=== PATIENT | female | born 1950 | race Caucasian/White ===

== ENCOUNTER → 2017-11-21 16:07 | Outpatient (CLI) | payer BC, SELFPAY | PROVIDERS: Visit Provider Podiatrist | DX: M79.671 Pain in right foot (principal); M79.672 Pain in left foot ==

== ENCOUNTER → 2017-11-22 07:50 | Outpatient (CLI) | payer BC, SELFPAY ==
--- NOTE | 2017-11-22 10:23 | XR_ITS ---
XR foot wt bearing RT 3V HISTORY: Foot pain, plantar fasciitis ORDERING PHYSICIAN: Sabrina Liu DPM PATIENT AGE: 67 years COMPARISON: None FINDINGS: No fracture or dislocation. No lytic or blastic change. There is normal mineralization.. The joint spaces are well-preserved. No significant degenerative/arthritic changes. No erosive changes evident. No calcaneal spur evident. Normal alignment. IMPRESSION: Negative, no acute finding
--- NOTE | 2017-11-22 10:23 | XR_ITS ---
XR foot wt bearing LT 3V HISTORY: Foot pain, plantar fasciitis ORDERING PHYSICIAN: Sabrina Liu DPM PATIENT AGE: 67 years COMPARISON: None FINDINGS: No fracture or dislocation. No lytic or blastic change. There is normal mineralization.. The joint spaces are well-preserved. No significant degenerative/arthritic changes. No erosive changes evident. There is mild pes planus. There is a small calcaneal spur at 6 mm. Minimal hypertrophic changes are present at the dorsal aspect of the first metatarsal tarsal joint IMPRESSION: Pes planus with calcaneal spur. Mild hypertrophic changes first metatarsal tarsal joint
== END ==
PROVIDERS: Visit Provider Podiatrist
DX: M79.673 Pain in unspecified foot (principal); B35.1 Tinea unguium
CPT/HCPCS: 73630; 87102; 87206; 87220

== ENCOUNTER → 2018-02-27 16:17 | Outpatient (CLI) | payer BC, SELFPAY ==
[2018-02-27 17:12] LABS: Blood Urea Nitrogen 9 mg/dL (7-18); Creatinine,Serum 0.78 mg/dL (0.55-1.02); Estimated Glomerular Filt Rate 73 ml/min (>60); GFR (African American) 89 ML/MIN (>60)
== END ==
PROVIDERS: Visit Provider Family Medicine
DX: R10.84 Generalized abdominal pain (principal)
CPT/HCPCS: 36415; 82565; 84520

== ENCOUNTER → 2018-02-28 13:57 | Outpatient (CLI) | payer BC, SELFPAY ==
--- NOTE | 2018-02-28 14:12 | CT_ITS ---
CT abdomen pelvis wo/w con INDICATION: Mid abdominal pain ITS.REASON: ABDOMINAL PAIN ORDERING PHYSICIAN: Milagro Xavier MD PATIENT AGE: 67 years COMPARISON: No useful comparison. Ultrasound abdomen from December 2011 shows no splenic cyst or findings. TECHNIQUE: CT abdomen with and without contrast. (Header states CT abdomen and pelvis, but ONLY the CT abdomen was performed by the technologist) 75 cc Isovue-370 administered with postcontrast scanning performed at portal venous phase and then delayed images performed 5 minutes thereafter Sagittal and coronal reformatted images are reviewed as well. All CT scans at the facility use one or more dose reduction, viz: automated exposure control; ma/kV adjustment per patient size (including targeted exams where dose is matched to indication; i.e. head); or iterative reconstruction technique. FINDINGS: Spleen low-density lesion. 2.2 cm low-density round lesion at the anterior aspect of the spleen. This measures near fluid density precontrast and shows only little if any enhancement. . The margins are very slightly rough irregular and not smooth. Question very subtle scant enhancement along its slight irregular peripheral rim on the 5 minute delayed image of raise the possibility scant enhancing hemangioma although I believe this less likely.. . I would suggest ultrasound abdomen attention spleen further evaluate this area towards the superior spleen Most likely this reflects a benign entity such as a slight complex cyst, less likely small hemangioma with only scant peripheral enhancement enhancement.. Unlikely abscess without more pronounced inflammation and enhancement. Unlikely lymphoma, noting the fluid low-density precontrast 10-22 hu density measurements speak against lymphoma Liver.: Small 12 mm hepatic cyst identified along the posterior margin left lobe of liver.. Measuring 11 HU pre& postcontrast . Remainder the liver otherwise fairly unremarkable. Generous right lobe liver measuring 20 cm in length but overall normal liver volume. No biliary ductal dilatation. Normal portal vein. Gallbladder. No calcified stones. No inflammation or wall thickening. Pancreas. Unremarkable. Adrenals unremarkable. Kidneys. No urinary tract calculi nor obstruction. Normal enhancement. The ureters normal in course and caliber down to the pelvis. Scanning is performed just below the level of the umbilicus to the upper pelvis. The lung bases demonstrate mild atelectasis but no active disease 12 calcified: Millimeter partially calcified skin nodule medial left breast noted GI tract. A few diverticula at the descending colon but no diverticulitis. Portions Small bowel unremarkable. A small fat-containing umbilical hernia. Osseous unremarkable. The images do not include appendix prominent ask . IMPRESSION: 1. No acute findings. No findings to account for mid abdominal pain. (Only CT of abdomen images today down to the umbilicus. Pelvis not included.) 2. A 2.2 cm round low-density area Spleen. Probable cyst Suggest ultrasound abdomen with attention to the spleen- to further evaluate and confirm cyst 3. Small 12 mm cyst posterior left lobe of liver No urinary tract calculi nor obstruction.
== END ==
PROVIDERS: Family Provider Family Medicine; PCP Family Medicine; Visit Provider Family Medicine
DX: R10.84 Generalized abdominal pain (principal)
CPT/HCPCS: 74170; Q9967

== ENCOUNTER → 2019-01-02 10:44 | Outpatient (CLI) | payer BC, SELFPAY ==
--- NOTE | 2019-01-02 10:57 | CT_ITS ---
CT chest wo con HISTORY: Left anterior and lower chest pain, rib pain, painful inspiration, history of melanoma talar ITS.REASON: ABD PAIN,RIB PAIN ORDERING PHYSICIAN: Milagro Xavier MD PATIENT AGE: 68 years COMPARISON: None Technique: Axial images obtained. Sagittal, and coronal reformatted images are also generated and reviewed. All CT scans at the facility use one or more dose reduction, viz: automated exposure control, ma/kV adjustment per patient size (including targeted exams where dose is matched to indication, i.e. head), or iterative reconstruction technique. FINDINGS: There is a nodule within the left lobe of the thyroid gland 2.5 x 2.4 cm. Suggest ultrasound for further evaluation. There is mild deviation of the trachea to the right. No adenopathy evident. No mediastinal or hilar mass. There are trace bilateral pleural effusions slightly larger on the left compared to the right side. No lobar consolidation or collapse. No suspicious pulmonary abnormalities. There are mild atelectatic changes in the left lung base. No evidence of pneumothorax. The thoracic cage has an unremarkable appearance. 3-D images are unremarkable of the ribs and spine. No acute bony anomalies. There is slight diffuse increased density of the subcutaneous fat of the chest. A partially calcified subcutaneous nodules present in the left breast inferiorly at 13 mm and there is some increased density in the retroareolar region on the left side compared to the right. Mammogram suggested for further evaluation. Upper abdominal images show a 3 cm isodense lesion in the spleen anteriorly on the left. IMPRESSION: 1. 2.5 cm left thyroid nodule. Ultrasound may be of further value. 2. Trace bilateral pleural effusions with minimal left basilar atelectasis. 3. 3 cm isodense lesion of the spleen anteriorly. Differential diagnosis would include a splenic cyst, hemangioma, lymphangioma, or even metastatic disease in this patient with history of melanoma. 4. Partially calcified nodule in the subcutaneous region of the left breast inferiorly with increased density in the retroareolar region on the left. Suggest mammogram for further evaluation
== END ==
PROVIDERS: PCP Family Medicine; Visit Provider Family Medicine
DX: R07.81 Pleurodynia (principal); R10.9 Unspecified abdominal pain; E04.1 Nontoxic single thyroid nodule; D73.89 Other diseases of spleen; N63.0 Unspecified lump in unspecified breast; Z85.820 Personal history of malignant melanoma of skin
CPT/HCPCS: 71250

== ENCOUNTER → 2019-01-07 11:00 | Outpatient (CLI) | payer BC, SELFPAY ==
--- NOTE | 2019-01-07 11:06 | XR_ITS ---
XR chest 2V HISTORY: Shortness of breath ITS.REASON: SOB ORDERING PHYSICIAN: Milagro Xavier MD PATIENT AGE: 68 years COMPARISON: None FINDINGS: The cardiomediastinal silhouette and pulmonary vascularity are within normal limits. The lungs are clear without infiltrates, suspicious nodules, or pleural effusions. Blunting of the CP angles on both sides suggesting trace bilateral effusions No acute bony abnormalities. IMPRESSION: Minimal blunting of the CP angles on both sides suggesting trace bilateral effusions otherwise negative
== END ==
PROVIDERS: PCP Family Medicine; Visit Provider Family Medicine
DX: R06.02 Shortness of breath (principal)
CPT/HCPCS: 71046

== ENCOUNTER → 2019-01-20 08:40 | Outpatient (CLI) | payer BC, SELFPAY ==
--- NOTE | 2019-01-20 08:46 | MR_ITS ---
MR abdomen wo/w con INDICATION: Left upper quadrant pain ITS.REASON: LESION OF SPLEEN ORDERING PHYSICIAN: Milagro Xavier MD PATIENT AGE: 68 years COMPARISON: 01/02/2019 TECHNIQUE: Contrast Used:12 mL's ProHance Multiplanar multiecho pre- and postenhanced images are obtained. FINDINGS: There is a 2.9 x 2.4 cm rounded lesion within the anterior aspect of the spleen. This has a thick walled capsule measuring approximately 6 mm. The central aspect of the lesion is hypointense on T1 and hyperintense on T2. The capsule is isointense on T1 and hyperintense on T2. The central aspect of the lesion does not demonstrate contrast enhancement. The peripheral aspect of the lesion demonstrates increase in enhancement becoming more hyperintense on the delayed images. No other splenic lesions are evident. The liver, adrenal glands, pancreas, and kidneys have an unremarkable appearance. IMPRESSION: 2.9 cm complex lesion of the spleen with a central cystic area and peripheral contrast enhancement. Differential diagnosis would include metastatic disease, atypical a hemangioma, hamartoma, or abscess.
--- NOTE | 2019-01-20 10:39 | HMH.ITSHM ---
Current Home Medications as stated by this patient Tyesha Herrera or healthcare representative. []SYNTHROID PROTONIX
== END ==
PROVIDERS: PCP Family Medicine; Visit Provider Family Medicine
DX: D73.9 Disease of spleen, unspecified (principal)
CPT/HCPCS: 74183; A9576

== ENCOUNTER → 2020-09-09 15:06 | Outpatient (CLI) | payer BC, SELFPAY ==
[2020-09-09 16:15] LABS: Blood Urea Nitrogen 12 mg/dl (7-17); Estimated Glomerular Filt Rate 62 ml/min (>60); GFR (African American) 75 ML/MIN (>60)
== END ==
PROVIDERS: Visit Provider Nurse Practitioner
DX: R10.9 Unspecified abdominal pain (principal)
CPT/HCPCS: 36415; 82565; 84520

== ENCOUNTER → 2020-09-10 09:40 | Outpatient (CLI) | payer BC, SELFPAY ==
--- NOTE | 2020-09-10 09:48 | CT_ITS ---
PROCEDURE: CT ABDOMEN PELVIS W CON CLINICAL INDICATION: ABD PAIN Mid abdominal pain, COMPARISON: CT ABDWW CT abdomen wo/w con from 02/28/2018 TECHNIQUE: IV Contrast: 75ML Isovue 370 Oral Contrast None Axial images obtained with sagittal and coronal reformats. All CT scans at the facility use one or more dose reduction, viz: automated exposure control, ma/kV adjustment per patient size (including targeted exams where dose is matched to indication, i.e. head), or iterative reconstruction technique. FINDINGS: LOWER THORAX: No acute finding ABDOMEN & PELVIS: There is a 13 mm hypodensity in the left hepatic lobe posteriorly and may represent a hepatic cyst. The liver is otherwise unremarkable. There is a 3.2 x 2.8 cm hypodense lesion in the anterior aspect of the spleen. This has a peripheral thick appearing capsule at 9 mm. Previously there was a hypodensity within the spleen measuring 2 cm on 02/28/2018. That study however was performed without contrast.. The adrenal glands and pancreas have an unremarkable appearance as does the gallbladder. There is mild ectasia of the renal collecting system and proximal ureters on both sides nonspecific. Unremarkable appendix. No intestinal obstruction or free air. There is nodularity noted along the uterus anteriorly with a small coarse calcification and could be due to fibroid. This is on the right aspect of the uterus. No pelvic free fluid is evident. No evidence of diverticulitis. There is degenerative disc disease at L5-S1. IMPRESSION: 1. No acute intra-abdominal or pelvic findings. 2. 3 cm complex hypodensity of the spleen. This has a cystic apparent centrally with and apparent peripheral capsule at approximately 9 mm. Hemangioma, lymphangioma, or metastatic disease is a consideration. Suggest 3 month follow-up with hemangioma protocol to confirm short term stability. 3. Other nonacute findings as described above. Dictated by: Schuyler Estrella MD 09/10/2020 16:38 Schuyler Estrella MD in [place] 09/10/2020 16:38
== END ==
PROVIDERS: PCP Family Medicine; Visit Provider Nurse Practitioner
DX: R10.9 Unspecified abdominal pain (principal)
CPT/HCPCS: 74177; Q9967

== ENCOUNTER → 2022-01-04 15:57 | Outpatient (CLI) | payer MEDICARE, BC, SELFPAY ==
--- NOTE | 2022-01-04 16:01 | XR_ITS ---
FINAL REPORT CLINICAL HISTORY: LT FOOT PAIN COMPARISON: November 22, 2017 FINDINGS: LEFT FOOT Three views of the left foot demonstrate a nondisplaced fracture of the neck of the 4th metatarsal. No other fracture is identified. The visualized joint spaces are normally aligned. There is a small plantar calcaneal spur. The soft tissues are unremarkable. IMPRESSION: Fourth metatarsal fracture as described. Reviewed, Interpreted and Dictated by Pb Kearney III, MD Transcribed by Verna Novak Authenticated and [facility]
== END ==
PROVIDERS: PCP Family Medicine; Visit Provider Family Medicine
DX: M79.672 Pain in left foot (principal)
CPT/HCPCS: 73630

== ENCOUNTER 2022-01-30 14:00 | Outpatient (RCR) | payer MEDICARE, BC, SELFPAY | END 2022-01-30 14:05 | disposition home or self-care (01) | LOC: OT 14:00 | PROVIDERS: PCP Family Medicine; Visit Provider Orthopaedic Surgery Hand Surgery | DX: G56.01 Carpal tunnel syndrome, right upper limb (principal) | CPT/HCPCS: 97010; 97014; 97033; 97035; 97110; 97140; 97164; 97166; 97530; G0283 ==

== ENCOUNTER 2022-05-04 15:00 | Outpatient (RCR) | payer MEDICARE, BC, SELFPAY | END 2022-05-04 15:05 | disposition home or self-care (01) | LOC: PT 15:00 | PROVIDERS: PCP Family Medicine; Visit Provider Family Medicine | DX: R42 Dizziness and giddiness (principal) | CPT/HCPCS: 97110; 97112; 97140; 97163; 97530 ==

== ENCOUNTER → 2022-08-24 14:16 | Outpatient (CLI) | payer MEDICARE, BC, SELFPAY ==
--- NOTE | 2022-08-24 14:21 | CT_ITS ---
FINAL REPORT TECHNIQUE: Thin section axial images were obtained through the lumbar spine without contrast. Sagittal and coronal reconstruction images were obtained from the axial data. Exam was performed using dose reduction techniques. CLINICAL HISTORY: CHRONIC LBP, BILAT LEG PAIN- RIGHT SIDE BEING WORSE FINDINGS: There is no acute fracture of the lumbar spine. There is very mild grade 1 anterior spondylolisthesis of L3 on L4. Alignment is otherwise normal. Vertebral body height is preserved. Paraspinal soft tissues are within normal limits. There is no paraspinal mass or fluid collection. L1-2: There is no focal disc herniation, central canal stenosis or neural foraminal narrowing. L2-3: There is no focal disc herniation, central canal stenosis or neural foraminal narrowing. L3-4: There is an annular disc bulge with moderate to severe central canal stenosis and [id number] bilateral neural foraminal narrowing. L4-5: There is an annular disc bulge with mild central canal stenosis and no significant foraminal narrowing. L5-S1: There is vacuum phenomenon with a broad-based disc osteophyte complex. There is mild central canal stenosis and moderate bilateral neural foraminal narrowing. IMPRESSION: 1. No acute fracture. 2. Grade 1 anterior spondylolisthesis of L3 on L4. 3. Multilevel degenerative disc disease most pronounced at L3-4 and L5-S1. Reviewed, Interpreted and Dictated by Loida Green MD Transcribed by Sindy Herrera Authenticated and [facility]
== END ==
PROVIDERS: PCP Family Medicine; Visit Provider Family Medicine
DX: M54.42 Lumbago with sciatica, left side (principal); M54.41 Lumbago with sciatica, right side; G89.29 Other chronic pain
CPT/HCPCS: 72131

== ENCOUNTER → 2022-09-18 10:58 | Outpatient (CLI) | payer MEDICARE, BC, SELFPAY ==
--- NOTE | 2022-09-18 11:02 | MR_ITS ---
FINAL REPORT TECHNIQUE: Multiplanar and multisequence imaging of the lumbar spine was obtained without contrast. CLINICAL HISTORY: LOW BACK PAIN with bilateral leg pain. right leg is worse. no injury or trauma. symptoms x4-5months. FINDINGS: There is minimal, grade 1 anterolisthesis of L3 on L4. There is otherwise normal alignment of the lumbar vertebral bodies. Hemangiomas are noted in L1 and L3. Vertebral body height is preserved. The spinal cord ends at the level of L1. There is normal signal intensity within the substance of the distal spinal cord. Bone marrow signal intensity is normal. No acute paraspinal abnormality is identified. L1-2: There is no focal disc herniation, central canal stenosis or neuroforaminal narrowing. L2-3: There is mild facet osteoarthropathy without focal disc herniation, central canal stenosis or neuroforaminal narrowing. L3-4: Annular disc bulge with degenerative endplate changes and facet osteoarthropathy. There is a small focal, left subarticular disc protrusion. There is mild central canal stenosis with mild right and moderate left neural foraminal narrowing. L4-5: Bilateral facet osteoarthropathy with mild left neural foraminal narrowing. L5-S1: Annular disc bulge with degenerative endplate changes and bilateral facet osteoarthropathy. There is mild, left greater than right neural foraminal narrowing. IMPRESSION: Multilevel degenerative disc disease as above. Small left subarticular disc protrusion at L3-4 with mild canal stenosis and [id number] neural foraminal narrowing. Reviewed, Interpreted and Dictated by Loida Green MD Transcribed by Gail Luevano Authenticated and [facility]
== END ==
PROVIDERS: PCP Family Medicine; Visit Provider Family Medicine
DX: M54.50 Low back pain, unspecified (principal)
CPT/HCPCS: 72148; 76376

== ENCOUNTER → 2022-09-18 12:00 | Outpatient (CLI) | payer MEDICARE, BC, SELFPAY ==
--- NOTE | 2022-09-18 12:08 | XR_ITS ---
FINAL REPORT CLINICAL HISTORY: LOW BACK PAIN, NEEDS FLEXION AND EXTENSION FROM FRONT/LAT FINDINGS: AP, lateral, and oblique views of the lumbar spine were obtained. There is no acute fracture or acute malalignment. There is grade 1 anterior spondylolisthesis of L3 on L4. Vertebral body height is preserved. Multilevel degenerative disease is most pronounced at L5-S1.. No acute paraspinal abnormality is identified. IMPRESSION: Multilevel degenerative disease most pronounced at L5-S1. Reviewed, Interpreted and Dictated by Loida Green MD Transcribed by Zac Blas Authenticated and . [facility]
== END ==
PROVIDERS: PCP Family Medicine; Visit Provider Family Medicine
DX: M54.50 Low back pain, unspecified (principal)
CPT/HCPCS: 72110; 72148; 76376

== ENCOUNTER 2022-11-02 14:00 | Outpatient (RCR) | payer MEDICARE, BC, SELFPAY | END 2022-11-02 14:05 | disposition home or self-care (01) | LOC: PT 14:00 | PROVIDERS: PCP Family Medicine; Visit Provider Anesthesiology Pain Medicine | DX: M48.062 Spinal stenosis, lumbar region with neurogenic claudication (principal) | CPT/HCPCS: 97010; 97014; 97110; 97113; 97140; 97163; 97164; G0283 ==

== ENCOUNTER 2024-11-03 15:00 | Outpatient (RCR) | payer MEDICARE, BC, SELFPAY | END 2024-11-03 23:59 | disposition home or self-care (01) | LOC: OT 15:00 | PROVIDERS: PCP Family Medicine; Visit Provider Physician Assistant | DX: Z98.890 Other specified postprocedural states (principal); Z96.691 Finger-joint replacement of right hand | CPT/HCPCS: 97014; 97018; 97035; 97140; 97165; G0283 ==

== ENCOUNTER 2024-11-24 10:00 | Outpatient (RCR) | payer MEDICARE, BC, SELFPAY | END 2024-11-24 23:59 | disposition home or self-care (01) | LOC: OT 10:00 | PROVIDERS: PCP Family Medicine; Visit Provider Family Medicine | DX: Z96.691 Finger-joint replacement of right hand (principal) | CPT/HCPCS: 97014; 97018; 97035; 97110; 97140; 97530; G0283 ==

== ENCOUNTER 2024-12-10 07:54 | Outpatient (RCR) | payer MEDICARE, BC, SELFPAY | END 2024-12-10 23:59 | disposition home or self-care (01) | LOC: OT 07:54 | PROVIDERS: PCP Family Medicine; Visit Provider Physician Assistant | DX: Z47.89 Encounter for other orthopedic aftercare (principal); Z98.890 Other specified postprocedural states | CPT/HCPCS: 97014; 97018; 97110; 97140; G0283 ==